=== PATIENT | male | born 1945 | race Caucasian/White ===

== ENCOUNTER → 2017-01-01 | Outpatient (CLI) | payer MEDICARE | LOC: HEART 5 12-25 10:00 | DX: I48.91 Unspecified atrial fibrillation (principal); I05.9 Rheumatic mitral valve disease, unspecified | CPT/HCPCS: 93306 ==

== ENCOUNTER → 2021-03-14 | Outpatient (CLI) | payer MEDICARE ==
[~2021-03-14] MED LIST: ASPIR 8181 MG PO; CARVEDILOL12.5 MG PO; DRISDOL50000 UNIT PO; FUROSEMIDE20 MG PO; NORCO 7.5-3251 EACH PO; NORVASC 5 MG TAB5 MG PO; PACERONE200 MG PO; POTASSIUM CHLO10 ME2 PO; PRILOSEC OTC20 MG PO
[2021-03-14 12:00] LABS: HEMOGLOBIN 14.5 gm/dl (14.0-17.5); RED BLOOD COUNT 4.79 M/UL (4.20-5.50); WHITE BLOOD COUNT 5.1 K/UL (4.5-11.0)
[2021-03-14 12:22] LABS: BUN/CREATININE RATIO 26 (0-10); GAMMA GLUTAMYL TRANSPEPTIDASE 19 U/L (7-64)
== END ==
LOC: LAB 10:26
PROVIDERS: Family Medicine
DX: E78.5 Hyperlipidemia, unspecified (principal); M10.9 Gout, unspecified; I10 Essential (primary) hypertension; E55.9 Vitamin D deficiency, unspecified; R74.8 Abnormal levels of other serum enzymes
CPT/HCPCS: 80053; 80061; 82977; 84439; 84443; 84550; 85027

== ENCOUNTER → 2021-09-08 | Outpatient (CLI) | payer MEDICARE ==
[2021-09-08 11:37] LABS: HEMOGLOBIN 14.6 gm/dl (14.0-17.5); RED BLOOD COUNT 4.68 M/UL (4.20-5.50); WHITE BLOOD COUNT 6.6 K/UL (4.5-11.0)
[2021-09-08 13:17] LABS: BUN/CREATININE RATIO 30 (0-10)
== END ==
LOC: LAB 10:28
PROVIDERS: Family Medicine
DX: E78.5 Hyperlipidemia, unspecified (principal); M10.9 Gout, unspecified; Z12.5 Encounter for screening for malignant neoplasm of prostate; E55.9 Vitamin D deficiency, unspecified
CPT/HCPCS: 36415; 80053; 80061; 84439; 84443; 84550; 85027; G0103